=== PATIENT | male | born 1950 | race Caucasian/White ===

== ENCOUNTER 2018-12-28 20:17 | Observation (INO) ==
[2018-12-28] MEDS ORDERED: SODIUM CHLORIDE 0.9% 500 ML IV ONE (20:46)
[2018-12-28 21:06] LABS: Basophils # (auto) 0.03 K/uL (0-0.2); Basophils % (auto) 0.3 %; Eosinophils # (auto) 0.14 K/uL (0-0.5); Eosinophils % (auto) 1.3 %; Hematocrit (blood only) 51.6 % (42-52); Immature Granulocytes # (auto) 0.02 K/uL (0.00-0.02); Immature Granulocytes % (auto) 0.2 %; Lymphocytes % (auto) 15.4 %; Mean Corpuscular Hgb Conc 34.9 g/dL (32-36); Mean Corpuscular Volume 85.9 fL (80-100); Mean Platelet Volume 10.8 fL (7.4-10.4); Monocytes # (auto) 0.72 K/uL (0.11-0.59); Monocytes % (auto) 6.5 %; Neutrophils # (auto) 8.43 K/uL (1.4-6.5); Neutrophils % (auto) 76.3 %; Platelet Count 305 K/uL (130-400); RDW Coefficient of Variation 13.1 % (11.5-14.5); RDW Standard Deviation 41.2 fL (36.4-46.3); Red Blood Count 6.01 M/uL (4.7-6.1); White Blood Count 11.04 K/uL (4.8-10.8)
--- NOTE | 2018-12-28 21:11 | CT Scan Report ---
CT head/brain wo con CLINICAL HISTORY: Head trauma. Thickened be. COMPARISON STUDY: No previous studies for comparison. TECHNIQUE: Axial CT of the brain is performed from the vertex to the skull base. IV contrast was not administered for this examination. A dose lowering technique was utilized adhering to the principles of ALARA. CT DOSE: 1026.72 mGy.cm FINDINGS: No intra or extra-axial mass lesions are visualized. There is no CT evidence of acute cortical infarc tion. There is no evidence of midline shift. There is no acute hemorrhage. No calvarial fractures ar e visualized. There are minimal white matter hypodensities likely on a small vessel basis. There are mild involutio nal changes. There is no evidence of pathologic ventricular dilatation. There is no evidence of acute sinusitis IMPRESSION: No acute intracranial findings Electronically signed by: Cameron Russell M.D. 12/28/2018 9:10 PM
--- NOTE | 2018-12-28 21:17 | CT Scan Report ---
CT OF THE CERVICAL SPINE CLINICAL HISTORY: Neck pain status post trauma. Syncope. COMPARISON STUDY: No previous studies for comparison. CT DOSE: TECHNIQUE: CT scan of the cervical spine was performed from the skull base to the thoracic inlet. Heaven ges are reviewed in the axial, sagittal, and coronal planes. IV contrast was not administered for thi s examination. A dose lowering technique was utilized adhering to the principles of ALARA. FINDINGS: The visualized portions of the lung apices reveal no evidence of pneumothorax. The prevertebral soft tissues are normal. No fractures or subluxations are visualized. There are multilevel degenerative changes IMPRESSION: No evidence of acute fracture or traumatic subluxation. Electronically signed by: Cameron Russell M.D. 12/28/2018 9:16 PM
--- NOTE | 2018-12-28 21:21 | CT Scan Report ---
CT facial bones wo con CT DOSE: CLINICAL HISTORY: Facial pain status post trauma. SYNCOPE COMPARISON STUDY: No previous studies for comparison. TECHNIQUE: Helical images were acquired in the transverse plane. The study was reviewed and analyzed on the independent 3-D workstation. A dose lowering technique was utilized adhering to the principle s of ALARA. The pterygoid plates appear intact. The zygomatic arches appear intact. The globes appear intact. There is no evidence of orbital emphysema. The orbital mejia and floor appear intact. The mandibular condyles appear intact. There are acute nasal bone fractures IMPRESSION: 1. Acute nasal bone fractures 2. No additional fractures identified Electronically signed by: Cameron Russell M.D. 12/28/2018 9:19 PM
[2018-12-28 21:23] LABS: Alanine Aminotransferase 29 U/L (12-78); Albumin Level 4.1 gm/dl (3.4-5.0); Aspartate Aminotransferase 24 U/L (15-37); Blood Urea Nitrogen 19 mg/dl (7-18); Calcium 9.4 mg/dl (8.5-10.1); Carbon Dioxide 25 mmol/L (21-32); Chloride 105 mmol/L (98-107); Creatinine Clr Calc Pharmacy 51.6 ml/min; Est GFR (African American) 51.7; Est GFR (Non-African American) 44.6; Glucose 128 mg/dl (70-99); Magnesium 1.9 mg/dl (1.8-2.4); Potassium 3.8 mmol/L (3.5-5.1); Sodium 139 mmol/L (136-145)
--- NOTE | 2018-12-28 21:32 | XRay Report ---
XR chest 1V portable CLINICAL HISTORY: syncope COMPARISON STUDY: No previous studies for comparison. FINDINGS: There are postsurgical changes of a midline sternotomy. The heart is normal in size. There is mild interstitial thickening, a finding of uncertain chronicity. There is no lobar consolidation. There are no pleural effusions.[No pneumothorax is visualized. There is a left subclavian dual-chambe r central venous pacemaker. IMPRESSION: 1. Mild interstitial thickening, a finding of uncertain chronicity.. No evidence of focal pulmonary c onsolidation. No evidence of pneumothorax. Electronically signed by: Cameron Russell M.D. 12/28/2018 9:31 PM
[2018-12-28 21:34] LABS: Alkaline Phosphatase 93 U/L (45-117); Bilirubin,Total 0.9 mg/dl (0.2-1); Globulin 4.1 gm/dl (2.5-4.0); Total Protein 8.2 gm/dl (6.4-8.2); Troponin I < 0.015 ng/ml (0-0.045)
[2018-12-28] MEDS ORDERED: XYLOCAINE 1%/SOD BICARB 20 ML VIAL INFIL ONE (22:53)
--- NOTE | 2018-12-28 23:22 | History & Physical Report ---
Date of Service December 28, 2018 Assessment & Plan (1) Syncope: The patient will be admitted to telemetry for serial cardiac enzymes, serial EKG's, cardiac rhythm monitoring and a 2-D echocardiogram with Dopplers.. CT of head negative for acute event. Order carotid Dopplers. Event most likely related to combination of hypoglycemia and dehydration. We will have patient seen by cardiology and neurology in a.m. Present on Admission?: Yes (2) History of aortic valve replacement: History of bicuspid aortic valve, underwent bovine AVR on 04/2013. Check echocardiogram in a.m. Present on Admission?: Yes (3) History of permanent cardiac pacemaker placement: Manufacture rep is being contacted for interrogation. Present on Admission?: Yes (4) HTN (hypertension): Hypertension/renal insufficiency- Creatinine upon admission was 1.57, with no baseline for reference. For now hold lisinopril. Gentle rehydration with IV fluids. Continue metoprolol tartrate 25 mg p.o. twice daily, and aspirin 81 mg p.o. daily Present on Admission?: Yes (5) Renal insufficiency: See above Present on Admission?: Yes (6) HLD (hyperlipidemia): Continue atorvastatin 20 mg every evening. Present on Admission?: Yes (7) Superficial laceration of face: Sutures placed by ED staff. Will need follow-up with his PCP as directed. Present on Admission?: Yes (8) BPH (benign prostatic hyperplasia): Continue tamsulosin 0.4 mg at bedtime. Not likely a contributor to his syncopal event Present on Admission?: Yes History of Present Illness Chief Complaint: The patient presents to the emergency department after a syncopal episode. Primary Care Provider: NO PCP The patient is a 68-year-old male with a past medical history including hyp ertension, hyperlipidemia, BPH, bovine aortic valve replacement and pacer placement. He reports that he ate a bagel this morning, and then traveled from [facility] to [employer] for the football game today. 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 As he continued to walking up the steps, he started to feel funny, he and his stopped to get some food, and while they were leaning against while eating he next found himself being picked up off the floor by the people around him. He has not had any previous occurrences of syncope. He denies any loss of bowel or bladder function, he did not have any focal weakness or abnormal sensations in arms or legs. He did sustain nasal bone fractures and facial lacerations that required suturing in the ED. Allergies Allergy/AdvReac Type Severity Reaction Status Date / Time Penicillins Allergy Unknown HAPPENED Verified 12/28/18 20:56 A CHILD Home Medications Home Medications Medication Instructions Recorded Confirmed Type aspirin [Aspir-81] 81 mg PO QAM 12/28/18 12/28/18 History atorvastatin 0 mg PO PM 12/28/18 12/28/18 History cholecalciferol (vitamin D3) 400 unit PO QAM 12/28/18 12/28/18 History [Vitamin D3] lisinopril 0 mg PO QPM 12/28/18 12/28/18 History metoprolol tartrate 0 mg PO BID 12/28/18 12/28/18 History omega 6-pgm-tib-fish oil [Fish Oil] 1 cap PO QAM 12/28/18 12/28/18 History tamsulosin 0.4 mg PO QPM 12/28/18 12/28/18 History Past Med/Surg History Family History Other No significant family history Social History Preferred Language: Turkmen Communication Ability: Effective Joggle Press Operator Required: No Beliefs That Will Affect Care: None Current Living Situation: Spouse Other Information That Helps Us Care for You: No Feels Safe at Home: Yes Safety Concerns: Feels Safe At This Time Smoking Status: Never smoker Hx Alcohol Use: Yes Hx Substance Use: No Review of Systems Review of Systems: The patient denies chest pain, palpitations, shortness of breath, dyspnea on exertion, cough, lower extremity swelling, sore throat, fevers, chills, sweats, nausea, vomiting, diarrhea , constipation, abdominal pain, pelvic pain, blood in urine or stool, dysuria, urinary frequency or urgency, focal weakness, numbness or tingling in arms or legs, generalized arthralgias or myalgias, back or neck pain, or night sweats. The review of systems is otherwise negative other than for that already noted above, and at least 10 systems have been reviewed. Physical Exam Physical Exam: The patient is awake, alert and oriented 3, well developed and well nourished, lying in bed and in no acute distress. HEENT--PERRL, EOMI, mucous membranes and oropharynx normal. Sutures over facial areas as noted in ED PA notes. Neck--supple. No JVD. No bruits. Thyroid normal, trachea midline, no adenopathy. Heart--normal S1 and S2. No murmurs, rubs or gallops. Lungs--clear bilaterally, no respiratory distress, no accessory muscle use. Abdomen--normal bowel sounds and soft. Nontender. Nondistended. Obese. Extremities--no cyanosis or clubbing. No edema. There are good distal pulses b/l. Dermatologic--facial laceration abrasions as noted. Neurologic--cranial nerves II through XII grossly intact. Rheumatologic--normal range of motion. Psychiatric--normal affect. Results & Data Vital Signs (Past 12 Hours) Vital Signs Temp Pulse Resp BP Pulse Ox 12/28/18 22:10 69 18 158/97 H 96 12/28/18 21:14 98 12/28/18 20:27 98.1 F 83 18 130/77 96 12/28/18 20:23 99 H 18 126/68 97 Laboratory Results Laboratory Results WBC 11.04 K/uL (4.8-10.8) H 12/28/18 20:15 RBC 6.01 M/uL (4.7-6.1) 12/28/18 20:15 Hgb 18.0 g/dL (14.0-18.0) 12/28/18 20:15 Hct 51.6 % (42-52) 12/28/18 20:15 MCV 85.9 fL (80-100) 12/28/18 20:15 MCH 30.0 pg (25-34) 12/28/18 20:15 MCHC 34.9 g/dL (32-36) 12/28/18 20:15 RDW Std Deviation 41.2 fL (36.4-46.3) 12/28/18 20:15 RDW Coeff of Lisa 13.1 % (11.5-14.5) 12/28/18 20:15 Plt Count 305 K/uL (130-400) 12/28/18 20:15 MPV 10.8 fL (7.4-10.4) H 12/28/18 20:15 Immature Gran % (Auto) 0.2 % 12/28/18 20:15 Neut % (Auto) 76.3 % 12/28/18 20:15 Lymph % (Auto) 15.4 % 12/28/18 20:15 [place] % (Auto) 6.5 % 12/28/18 20:15 Eos % (Auto) 1.3 % 12/28/18 20:15 Baso % (Auto) 0.3 % 12/28/18 20:15 Immature Gran # (Auto) 0.02 K/uL (0.00-0.02) 12/28/18 20:15 Neut # (Auto) 8.43 K/uL (1.4-6.5) H 12/28/18 20:15 Lymph # (Auto) 1.70 K/uL (1.2-3.4) 12/28/18 20:15 [place] # (Auto) 0.72 K/uL (0.11-0.59) H 12/28/18 20:15 Eos # (Auto) 0.14 K/uL (0-0.5) 12/28/18 20:15 Baso # (Auto) 0.03 K/uL (0-0.2) 12/28/18 20:15 Sodium 139 mmol/L (136-145) 12/28/18 20:15 Potassium 3.8 mmol/L (3.5-5.1) 12/28/18 20:15 Chloride 105 mmol/L (98-107) 12/28/18 20:15 Carbon Dioxide 25 mmol/L (21-32) 12/28/18 20:15 Anion Gap 9.0 (3-11) 12/28/18 20:15 BUN 19 mg/dl (7-18) H 12/28/18 20:15 Creatinine 1.57 mg/dl (0.6-1.4) H 12/28/18 20:15 Est Cr Clr Drug Dosing 51.6 ml/min 12/28/18 20:15 Est GFR ( Amer) 51.7 12/28/18 20:15 Est GFR (Non-Af Amer) 44.6 12/28/18 20:15 BUN/Creatinine Ratio 12.0 (10-20) 12/28/18 20:15 Glucose 128 mg/dl (70-99) H 12/28/18 20:15 Calcium 9.4 mg/dl (8.5-10.1) 12/28/18 20:15 Magnesium 1.9 mg/dl (1.8-2.4) 12/28/18 20:15 Total Bilirubin 0.9 mg/dl (0.2-1) 12/28/18 20:15 AST 24 U/L (15-37) 12/28/18 20:15 ALT 29 U/L (12-78) 12/28/18 20:15 Alkaline Phosphatase 93 U/L (45-117) 12/28/18 20:15 Troponin I 0.017 ng/ml (0-0.045) 12/29/18 01:04 Total Protein 8.2 gm/dl (6.4-8.2) 12/28/18 20:15 Albumin 4.1 gm/dl (3.4-5.0) 12/28/18 20:15 Globulin 4.1 gm/dl (2.5-4.0) H 12/28/18 20:15 Albumin/Globulin Ratio 1.0 (0.9-2) 12/28/18 20:15 TSH 3.140 uIu/ml (0.300-4.500) 12/28/18 20:15 Urine Color Yellow 12/29/18 00:20 Urine Appearance Clear (Clear) 12/29/18 00:20 Urine pH 5.0 (4.5-7.5) 12/29/18 00:20 Ur Specific [place] 1.023 (1.000-1.030) 12/29/18 00:20 Urine Protein Negative (Negative) 12/29/18 00:20 Urine Glucose (UA) Negative (Negative) 12/29/18 00:20 Urine Ketones Trace (Negative) H 12/29/18 00:20 Urine Blood Negative (Negative) 12/29/18 00:20 Urine Nitrite Negative (Negative) 12/29/18 00:20 Urine Bilirubin Negative (Negative) 12/29/18 00:20 Urine Urobilinogen Negative (Negative) 12/29/18 00:20 Ur Leukocyte Esterase Negative (Negative) 12/29/18 00:20 Diagnostic Findings [facility], [place] [phone] CT Scan Report Patient: COLTON WORTHYAdmit Date: 12/28/18 MR#: [id number]: Acct ID:[id number]: Date: [address] [place] [address] Zip: Age: 68Location: ED Sex: M Room/Bed: Att Phy:Diagnosis: SYNCOPE Arlen Phy: PCP,NOService Date: 12/28/18 Fam Phy:Interpreting Phy: Cameron Russell MD Admit Phy: Ordering Phy: Manoj Siddiqi DO cc: ~ CT facial bones wo con CT DOSE: CLINICAL HISTORY: Facial pain status post trauma. SYNCOPE COMPARISON STUDY: No previous studies for comparison. TECHNIQUE: Helical images were acquired in the transverse plane. The study was reviewed and analyzed on the independent 3-D workstation. A dose lowering technique was utilized adhering to the principles of ALARA. The pterygoid plates appear intact. The zygomatic arches appear intact. The globes appear intact. There is no evidence of orbital emphysema. The orbital mejia and floor appear intact. The mandibular condyles appear intact. There are acute nasal bone fractures IMPRESSION: 1. Acute nasal bone fractures 2. No additional fractures identified Electronically signed by: Cameron Russell M.D. 12/28/2018 9:19 PM Dictated: 12/28/182115 Transcribed: 12/28/182115 [place], [place] [phone] CT Scan Report Patient: COLTON WORTHYAdmit Date: 12/28/18 MR#: [id number]: Acct ID:[id number]: Date: [address] [place] [address] Zip: Age: 68Location: ED Sex: M Room/Bed: Att Phy:Diagnosis: SYNCOPE Arlen Phy: PCP,NOService Date: 12/28/18 Fam Phy:Interpreting Phy: Cameron Russell MD Admit Phy: Ordering Phy: Mnaoj Siddiqi DO cc: ~ CT OF THE CERVICAL SPINE CLINICAL HISTORY: Neck pain status post trauma. Syncope. COMPARISON STUDY: No previous studies for comparison. CT DOSE: TECHNIQUE: CT scan of the cervical spine was performed from the skull base to the thoracic inlet. Images are reviewed in the axial, sagittal, and coronal planes. IV contrast was not administered for this examination. A dose lowering technique was utilized adhering to the principles of ALARA. FINDINGS: The visualized portions of the lung apices reveal no evidence of pneumothorax. The prevertebral soft tissues are normal. No fractures or subluxations are visualized. There are multilevel degenerative changes IMPRESSION: No evidence of acute fracture or traumatic subluxation. Electronically signed by: Cameron Russell M.D. 12/28/2018 9:16 PM Dictated: 12/28/182113 Transcribed: 12/28/182113 [facility], [place] [phone] CT Scan Report Patient: COLTON WORTHYAdmit Date: 12/28/18 MR#: [id number]: Acct ID:[id number]: Date: 1950[facility] Zip: Age: 68Location: ED Sex: M Room/Bed: Att Phy:Diagnosis: SYNCOPE Arlen Phy: PCP,NOService Date: 12/28/18 Fam Phy:Interpreting Phy: Cameron Russell MD Admit Phy: Ordering Phy: Manoj Siddiqi, cc: ~ CT head/brain wo con CLINICAL HISTORY: Head trauma. Thickened be. COMPARISON STUDY: No previous studies for comparison. TECHNIQUE: Axial CT of the brain is performed from the vertex to the skull base. IV contrast was not administered for this examination. A dose lowering technique was utilized adhering to the principles of ALARA. CT DOSE: 1026.72 mGy.cm FINDINGS: No intra or extra-axial mass lesions are visualized. There is no CT evidence of acute cortical infarction. There is no evidence of midline shift. There is no acute hemorrhage. No calvarial fractures are visualized. There are minimal white matter hypodensities likely on a small vessel basis. There are mild involutional changes. There is no evidence of pathologic ventricular dilatation. There is no evidence of acute sinusitis IMPRESSION: No acute intracranial findings Electronically signed by: Cameron Russell M.D. 12/28/2018 9:10 PM Dictated: 12/28/182107 Transcribed: 12/28/182107 [facility], [place] [phone] XRay Report Patient: COLTON WORTHYAdmit Date: 12/28/18 MR#: [id number]: Acct ID:[id number]: [facility] Zip: Age: 68Location: ED Sex: M Room/Bed: Att Phy:Diagnosis: SYNCOPE Arlen Phy: PCP,NOService Date: 12/28/18 [facility] Phy:Interpreting Phy: Cameron Russell MD Admit Phy: Ordering Phy: Manoj Siddiqi, cc: ~ XR chest 1V portable CLINICAL HISTORY: syncope COMPARISON STUDY: No previous studies for comparison. FINDINGS: There are postsurgical changes of a midline sternotomy. The heart is normal in size. There is mild interstitial thickening, a finding of uncertain chronicity. There is no lobar consolidation. There are no pleural effusions.[No pneumothorax is visualized. There is a left subclavian dual-chamber central venous pacemaker. IMPRESSION: 1. Mild interstitial thickening, a finding of uncertain chronicity.. No evidence of focal pulmonary consolidation. No evidence of pneumothorax. Electronically signed by: Cameron Russell M.D. 12/28/2018 9:31 PM Dictated: 12/28/182128 Transcribed: 12/28/182128 Code Status & VTE Plan Code Status Full code VTE Prophylaxis Plan VTE Prophylaxis will be ordered: Yes PG Care Time/CCT Total # of Minutes Spent Total Time Spent with Patient: Total time spent is greater than 50% in coordination of care (as documented) at patient's floor/unit and/or counseling patient: (1) Syncope Syncope type: unspecified Qualified Code(s): R55 - Syncope and collapse
--- NOTE | 2018-12-28 23:44 | Emergency Department Note ---
ED Provider Note Patient was seen and evaluated at the request of my attending physician, Dr. Siddiqi, for both upper and lower lip lacerations. Evidently the [place] [employer] [place], and had a syncopal episode. He was initially evaluated by medical staff at the [facility] and the outer laceration of his upper lip was previously repaired. Please see Dr. Siddiqi's dictation for full history of present illness and emergency department course. On examination the patient still has lacerations inside the lip, with the upper lip laceration measuring approximately 1.0 cm, and the lower lip laceration measuring approximately 8 mm. Both of these do gape and will do much better with simple repair. I discussed options of care with the patient, and he does consent to have these lacerations repaired. Laceration repair. Patient elects to have their laceration repaired. Verbal consent was obtained to perform the procedure. There is an abundance of materials available for the procedure. Patient is not allergic to latex. Using sterile technique the wound was cleaned with Betadine. The area was sterilely draped. 3 ml of 1% buffered lidocaine was used to anesthetize the lips. Once the patient was anesthetized, the wounds were copiously irrigated under pressure with sterile saline. The wound was explored and there were no deep structures injured such as tendons, bone, or significant blood vessels. The upper lip laceration was repaired using 2 6-0 simple interrupted vicryl sutures with the wound edges being well approximated. The lower lip laceration was repaired utilizing 1 6-0 simple interrupted Vicryl suture with the wound edge being well approximated. Hemostasis was achieved. Patient tolerated the procedure well without complications. Blood loss was negligible. Impression & Plan Syncope, MARCIE (acute kidney injury), Laceration Past Med/Surg History Family History Other No significant family history Social History Preferred Language: Chinese Communication Ability: Effective Information Scientist Required: No Beliefs That Will Affect Care: None Current Living Situation: Spouse Other Information That Helps Us Care for You: No Feels Safe at Home: Yes Safety Concerns: Feels Safe At This Time Smoking Status: Never smoker Hx Alcohol Use: Yes Hx Substance Use: No Results & Data Vital Signs Vital Signs - 24 hr 12/28/18 20:23 12/28/18 20:27 12/28/18 20:32 Temperature 36.7 C Temperature Source Oral Sepsis Recent Fever Within 48 Hours No Sepsis New/Unexplained Change in Mental Status No Sepsis Action Taken by Nursing No Action Required Pulse Rate - Lying 83 Pulse Rate - Sitting 88 Pulse Rate - Standing 104 H Pulse Rate 99 H 83 Pulse Rate from SpO2 Sensor 100 H Respiratory Rate 18 18 Blood Pressure - Lying 130/77 Blood Pressure - Sitting 141/88 H Blood Pressure- Standing 126/68 Blood Pressure 126/68 130/77 Blood Pressure Mean 87 94 Blood Pressure Position Lying Pulse Oximetry 97 96 Oxygen Delivery Method 12/28/18 21:14 12/28/18 22:10 12/28/18 23:01 Temperature Temperature Source Sepsis Recent Fever Within 48 Hours Sepsis New/Unexplained Change in Mental Status Sepsis Action Taken by Nursing Pulse Rate - Lying Pulse Rate - Sitting Pulse Rate - Standing Pulse Rate 69 69 Pulse Rate from SpO2 Sensor Respiratory Rate 18 18 Blood Pressure - Lying Blood Pressure - Sitting Blood Pressure- Standing Blood Pressure 158/97 H 163/92 H Blood Pressure Mean 117 115 Blood Pressure Position Pulse Oximetry 98 96 94 Oxygen Delivery Method Room Air Laboratory Data Result diagrams: 12/28/18 20:15 12/28/18 20:15 Lab Results 12/28/18 12/28/18 Range/Units 20:15 20:15 WBC 11.04 H (4.8-10.8) K/uL RBC 6.01 (4.7-6.1) M/uL Hgb 18.0 (14.0-18.0) g/dL Hct 51.6 (42-52) % MCV 85.9 (80-100) fL MCH 30.0 (25-34) pg MCHC 34.9 (32-36) g/dL RDW Std Deviation 41.2 (36.4-46.3) fL RDW Coeff of Lisa 13.1 (11.5-14.5) % Plt Count 305 (130-400) K/uL MPV 10.8 H (7.4-10.4) fL Immature Gran % (Auto) 0.2 % Neut % (Auto) 76.3 % Lymph % (Auto) 15.4 % [place] % (Auto) 6.5 % Eos % (Auto) 1.3 % Baso % (Auto) 0.3 % Immature Gran # (Auto) 0.02 (0.00-0.02) K/uL Neut # (Auto) 8.43 H (1.4-6.5) K/uL Lymph # (Auto) 1.70 (1.2-3.4) K/uL [place] # (Auto) 0.72 H (0.11-0.59) K/uL Eos # (Auto) 0.14 (0-0.5) K/uL Baso # (Auto) 0.03 (0-0.2) K/uL Sodium 139 (136-145) mmol/L Potassium 3.8 (3.5-5.1) mmol/L Chloride 105 (98-107) mmol/L Carbon Dioxide 25 (21-32) mmol/L Anion Gap 9.0 (3-11) BUN 19 H (7-18) mg/dl Creatinine 1.57 H (0.6-1.4) mg/dl Est Cr Clr Drug Dosing 51.6 ml/min Est GFR ( Amer) 51.7 Est GFR (Non-Af Amer) 44.6 BUN/Creatinine Ratio 12.0 (10-20) Glucose 128 H (70-99) mg/dl Calcium 9.4 (8.5-10.1) mg/dl Magnesium 1.9 (1.8-2.4) mg/dl Total Bilirubin 0.9 (0.2-1) mg/dl AST 24 (15-37) U/L ALT 29 (12-78) U/L Alkaline Phosphatase 93 (45-117) U/L Troponin I < 0.015 (0-0.045) ng/ml Total Protein 8.2 (6.4-8.2) gm/dl Albumin 4.1 (3.4-5.0) gm/dl Globulin 4.1 H (2.5-4.0) gm/dl Albumin/Globulin Ratio 1.0 (0.9-2) TSH 3.140 (0.300-4.500) uIu/ml Administered Medications Metoprolol Tartrate (Lopressor) 25 mg PO BID MACI Stop: 01/28/19 00:11 Last Admin: 12/29/18 01:02 Dose: 25 mg Documented by: [id number] Discontinued Medications Sodium Chloride (Nss) 500 mls @ 999 mls/hr IV .Q31M ONE Stop: 12/28/18 21:16 Last Infusion: 12/28/18 22:20 Dose: 0 mls/hr Documented by: [id number] Admin: 12/28/18 21:09 Dose: 999 mls/hr Documented by: [id number] Lidocaine HCl (Buffered Lidocaine 1%) 20 ml INFIL NOW ONE Stop: 12/28/18 22:54 Last Admin: 12/28/18 23:03 Dose: 20 ml Documented by: [id number] Discharge Plan Visit Data *Final* Discharge Date/Time: 12/28/18 23:41 Chief Complaint: Syncope Stated Complaint: SYNCOPE ED Provider: Manoj Siddiqi Discharge Problem: Syncope, MARCIE (acute kidney injury), Laceration Patient Disposition: Admitted As Inpatient Discharge Instructions Interventions: ED Discharge Assessment Last Done: 12/28/18 23:41 Discharge Problem: Syncope Qualifiers: Syncope type: unspecified Qualified Code(s): R55 - Syncope and collapse
[2018-12-29] MEDS ORDERED: ACETAMINOPHEN 1000 MG/100 ML IV IV PRN (00:12)
[2018-12-29] MEDS ORDERED: ALUMINUM/MAGNESIUM SUSP 30 ML UDC PO PRN (00:12)
[2018-12-29] MEDS ORDERED: ACETAMINOPHEN 325 MG TAB PO PRN (00:12)
[2018-12-29] MEDS ORDERED: ONDANSETRON INJ 2 MG/ML 2 ML VIAL IV PRN (00:12)
[2018-12-29] MEDS ORDERED: MAGNESIUM HYDROXIDE SUSP 30 ML UDC PO PRN (00:12)
[2018-12-29] MEDS: METOPROLOL TARTRATE 25 MG TAB PO SCH ×2 (01:02→08:10)
[2018-12-29 01:10] LABS: Appearance Urine Clear (Clear); Bilirubin Urine Negative (Negative); Blood Urine Negative (Negative); Color Urine Yellow; Glucose Urine UA Negative (Negative); Ketones Urine Trace (Negative); Leukocyte Esterase Urine Negative (Negative); Nitrite Urine Negative (Negative); Protein Urine Negative (Negative); Specific Gravity Urine 1.023 (1.000-1.030); Urobilinogen Urine Negative (Negative)
--- NOTE | 2018-12-29 01:48 | Emergency Department Note ---
Entered by Holden Spears acting as a scribe for Manoj Siddiqi DO History of Present Illness General Chief complaint: Syncope Stated complaint: SYNCOPE Source: patient History of Present Illness Onset (ago): hour(s) (prior to arrival) Location: head (syncope) Pain Consistency: + other (episode) Relieved By: + none Associated symptoms: + denies other symptoms (diarrhea) and + other (light- headedness); no chest pain and no nausea/vomiting The patient is a 68 year-old white M w/ PMHx of a bovine aortic valve replacement, HTN, and HLD who presents to the ED w/ CC of an episode of syncope beginning prior to arrival. The patient states that he did not eat anything all day. He adds that he was walking all day. He notes that he decided to go to the football game with his . He adds that at the football game he decided to buy chicken fingers and eat it at the concourse of the stadium. He states that on the concourse, he was experiencing light-headedness. The patients notes that the patient said he was feeling tired. She adds that this is when the patient lost consciousness and fell forward onto his face. She notes that when the patient woke up, he was not shaking and was oriented. He denies that he is currently experiencing chest pain, nausea, vomiting, and diarrhea. He notes that he currently is taking his medications of metoprolol, Lipitor and statins. He states that he had a bovine aortic valve replacement before and has a pacemaker in place. Home Medications Home Medications Medication Instructions Recorded Confirmed Type aspirin [Aspir-81] 81 mg PO QAM 12/28/18 12/28/18 History atorvastatin 0 mg PO PM 12/28/18 12/28/18 History cholecalciferol (vitamin D3) 400 unit PO QAM 12/28/18 12/28/18 History [Vitamin D3] lisinopril 0 mg PO QPM 12/28/18 12/28/18 History metoprolol tartrate 0 mg PO BID 12/28/18 12/28/18 History omega 2-mpz-acf-fish oil [Fish Oil] 1 cap PO QAM 12/28/18 12/28/18 History tamsulosin 0.4 mg PO QPM 12/28/18 12/28/18 History Allergies Allergy/AdvReac Type Severity Reaction Status Date / Time Penicillins Allergy Unknown HAPPENED Verified 12/28/18 20:56 A CHILD Past Med/Surg History Family History Other No significant family history Social History Preferred Language: Maltese Communication Ability: Effective 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 and A total of 10 systems reviewed and were otherwise negative Physical Exam Vital Signs Vital Signs - 24 hr 12/28/18 20:23 12/28/18 20:27 12/28/18 20:32 Temperature 36.7 C Temperature Source Oral Sepsis Recent Fever Within 48 Hours No Sepsis New/Unexplained Change in Mental Status No Sepsis Action Taken by Nursing No Action Required Pulse Rate - Lying 83 Pulse Rate - Sitting 88 Pulse Rate - Standing 104 H Pulse Rate 99 H 83 Pulse Rate from SpO2 Sensor 100 H Respiratory Rate 18 18 Blood Pressure - Lying 130/77 Blood Pressure - Sitting 141/88 H Blood Pressure- Standing 126/68 Blood Pressure 126/68 130/77 Blood Pressure Mean 87 94 Blood Pressure Position Lying Pulse Oximetry 97 96 Oxygen Delivery Method 12/28/18 21:14 12/28/18 22:10 12/28/18 23:01 Temperature Temperature Source Sepsis Recent Fever Within 48 Hours Sepsis New/Unexplained Change in Mental Status Sepsis Action Taken by Nursing Pulse Rate - Lying Pulse Rate - Sitting Pulse Rate - Standing Pulse Rate 69 69 Pulse Rate from SpO2 Sensor Respiratory Rate 18 18 Blood Pressure - Lying Blood Pressure - Sitting Blood Pressure- Standing Blood Pressure 158/97 H 163/92 H Blood Pressure Mean 117 115 Blood Pressure Position Pulse Oximetry 98 96 94 Oxygen Delivery Method Room Air GENERAL: Sitting up in bed, dried blood on upper lip, talking in full sentences. HEAD: normal cephalic, atraumatic FACE: swelling of nasal bridge, slight angulation to the left, 2 sutures just above mid upper lip, dried blood in bilaterally nares. EYE EXAM: normal conjunctiva, PERRL and EOM's grossly intact OROPHARYNX: Laceration on the interior of the upper lip. Please see my PAs note for dimensions and laceration repair. EARS: TMs clear b/l NECK: supple, no nuchal rigidity, no adenopathy, non-tender CHEST: stable to compression anteriorly and posteriorly LUNGS: clear to auscultation. Normal chest wall mechanics HEART: no murmurs, S1 normal and S2 normal ABDOMEN: abdomen soft, non-tender, normo-active bowel sounds, no masses, no rebound or guarding. PELVIS: stable to compression anteriorly and posteriorly BACK: Back is symmetrical on inspection and there is no deformity, no midline tenderness, no CVA tenderness. UPPER EXTREMITIES: full active and passive range of motion of all joints without tenderness to palpation LOWER EXTREMITIES: full active and passive range of motion of all joints without tenderness to palpation NEURO EXAM: Normal sensorium, cranial nerves II-XII grossly intact, normal speech, no gross weakness of arms, no gross weakness of legs. GCS: 15. Course ED COURSE: Vital signs were reviewed and showed hypertension. The patients medical record was reviewed The above diagnostic studies were performed and reviewed. ED treatments and interventions as stated above. 2035: The patient was evaluated in room C4. A complete history and physical examination was performed. 2121: I reviewed the patient's case with EP fellow at [facility]. He states that he was unable to access interrogation of the patients device. 2208: Upon reevaluation, the patient is doing no better. I discussed my findings with the patient and he understands and agrees with the treatment plan. 2239: I reviewed the patient's case with Dr. Arnold Astorga, [facility] Hospitalist. He will evaluate the patient for further management. Based on the patients age, coexisting illnesses, exam and lab findings the de cision to treat as an inpatient was made. The patient remained stable while under my care. The patient will be evaluated for further management. Consultations Consultation #1: I reviewed the patient's case with EP fellow at [facility]. He states that he was unable to access interrogation of the patients device. Time: 21:22 Consultation #2: I reviewed the patient's case with Dr. Arnold Astorga, [facility] Hospitalist. He will evaluate the patient for further management. Time: 22:40 Administered Medications Metoprolol Tartrate (Lopressor) 25 mg PO BID MACI Stop: 01/28/19 00:11 Last Admin: 12/29/18 01:02 Dose: 25 mg Documented by: [id number] Discontinued Medications Sodium Chloride (Nss) 500 mls @ 999 mls/hr IV .Q31M ONE Stop: 12/28/18 21:16 Last Infusion: 12/28/18 22:20 Dose: 0 mls/hr Documented by: [id number] Admin: 12/28/18 21:09 Dose: 999 mls/hr Documented by: [id number] Lidocaine HCl (Buffered Lidocaine 1%) 20 ml INFIL NOW ONE Stop: 12/28/18 22:54 Last Admin: 12/28/18 23:03 Dose: 20 ml Documented by: [id number] Medical Decision Making Differential Diagnosis Differential includes acute cardiac dysrhythmia, microinfarction, CVA, TIA, dehydration, anemia, electrolyte disturbance, seizure, trauma, intracranial bleeding, acute vascular catastrophe, thoracic aortic dissection, PE, abdominal aortic aneurysm rupture, ectopic rupture. Medical Records Attestation: I reviewed the patient's medical records. Home Medications Current Medication List: was personally reviewed by me Laboratory Data Attestation: I reviewed the patient's lab results. Result diagrams: 12/28/18 20:15 12/28/18 20:15 Lab Results 12/28/18 12/28/18 Range/Units 20:15 20:15 WBC 11.04 H (4.8-10.8) K/uL RBC 6.01 (4.7-6.1) M/uL Hgb 18.0 (14.0-18.0) g/dL Hct 51.6 (42-52) % MCV 85.9 (80-100) fL MCH 30.0 (25-34) pg MCHC 34.9 (32-36) g/dL RDW Std Deviation 41.2 (36.4-46.3) fL RDW Coeff of Lisa 13.1 (11.5-14.5) % Plt Count 305 (130-400) K/uL MPV 10.8 H (7.4-10.4) fL Immature Gran % (Auto) 0.2 % Neut % (Auto) 76.3 % Lymph % (Auto) 15.4 % Whiteside % (Auto) 6.5 % Eos % (Auto) 1.3 % Baso % (Auto) 0.3 % Immature Gran # (Auto) 0.02 (0.00-0.02) K/uL Neut # (Auto) 8.43 H (1.4-6.5) K/uL Lymph # (Auto) 1.70 (1.2-3.4) K/uL Whiteside # (Auto) 0.72 H (0.11-0.59) K/uL Eos # (Auto) 0.14 (0-0.5) K/uL Baso # (Auto) 0.03 (0-0.2) K/uL Sodium 139 (136-145) mmol/L Potassium 3.8 (3.5-5.1) mmol/L Chloride 105 (98-107) mmol/L Carbon Dioxide 25 (21-32) mmol/L Anion Gap 9.0 (3-11) BUN 19 H (7-18) mg/dl Creatinine 1.57 H (0.6-1.4) mg/dl Est Cr Clr Drug Dosing 51.6 ml/min Est GFR ( Amer) 51.7 Est GFR (Non-Af Amer) 44.6 BUN/Creatinine Ratio 12.0 (10-20) Glucose 128 H (70-99) mg/dl Calcium 9.4 (8.5-10.1) mg/dl Magnesium 1.9 (1.8-2.4) mg/dl Total Bilirubin 0.9 (0.2-1) mg/dl AST 24 (15-37) U/L ALT 29 (12-78) U/L Alkaline Phosphatase 93 (45-117) U/L Troponin I < 0.015 (0-0.045) ng/ml Total Protein 8.2 (6.4-8.2) gm/dl Albumin 4.1 (3.4-5.0) gm/dl Globulin 4.1 H (2.5-4.0) gm/dl Albumin/Globulin Ratio 1.0 (0.9-2) TSH 3.140 (0.300-4.500) uIu/ml Imaging Data Radiologist's Impression: Radiology results as stated below per my review and the radiologist's interpretation: CT OF THE CERVICAL SPINE CLINICAL HISTORY: Neck pain status post trauma. Syncope. COMPARISON STUDY: No previous studies for comparison. CT DOSE: TECHNIQUE: CT scan of the cervical spine was performed from the skull base to the thoracic inlet. Images are reviewed in the axial, sagittal, and coronal planes. IV contrast was not administered for this examination. A dose lowering technique was utilized adhering to the principles of ALARA. FINDINGS: The visualized portions of the lung apices reveal no evidence of pneumothorax. The prevertebral soft tissues are normal. No fractures or subluxations are vis ualized. There are multilevel degenerative changes IMPRESSION: No evidence of acute fracture or traumatic subluxation. Electronically signed by: Cameron Russell M.D. 12/28/2018 9:[address] facial bones wo con CT DOSE: CLINICAL HISTORY: Facial pain status post trauma. SYNCOPE COMPARISON STUDY: No previous studies for comparison. TECHNIQUE: Helical images were acquired in the transverse plane. The study was reviewed and analyzed on the independent 3-D workstation. A dose lowering technique was utilized adhering to the principles of ALARA. The pterygoid plates appear intact. The zygomatic arches appear intact. The globes appear intact. There is no evidence of orbital emphysema. The orbital mejia and floor appear intact. The mandibular condyles appear intact. There are acute nasal bone fractures IMPRESSION: 1. Acute nasal bone fractures 2. No additional fractures identified Electronically signed by: Cameron Russell M.D. 12/28/2018 9:[address] head/brain wo con CLINICAL HISTORY: Head trauma. Thickened be. COMPARISON STUDY: No previous studies for comparison. TECHNIQUE: Axial CT of the brain is performed from the vertex to the skull base. IV contrast was not administered for this examination. A dose lowering technique was utilized adhering to the principles of ALARA. CT DOSE: 1026.72 mGy.cm FINDINGS: No intra or extra-axial mass lesions are visualized. There is no CT evidence of acute cortical infarction. There is no evidence of midline shift. There is no acute hemorrhage. No calvarial fractures are visualized. There are minimal white matter hypodensities likely on a small vessel basis. There are mild involutional changes. There is no evidence of pathologic ventricular dilatation. There is no evidence of acute sinusitis IMPRESSION: No acute intracranial findings Electronically signed by: Cameron Russell M.D. 12/28/2018 9:10 PM XR chest 1V portable CLINICAL HISTORY: syncope COMPARISON STUDY: No previous studies for comparison. FINDINGS: There are postsurgical changes of a midline sternotomy. The heart is normal in size. There is mild interstitial thickening, a finding of uncertain chronicity. There is no lobar consolidation. There are no pleural effusions.[No pneumothorax is visualized. There is a left subclavian dual-chamber central venous pacemaker. IMPRESSION: 1. Mild interstitial thickening, a finding of uncertain chronicity.. No evidence of focal pulmonary consolidation. No evidence of pneumothorax. Electronically signed by: Cameron Russell M.D. 12/28/2018 9:31 PM ECG Data Attestation: I personally reviewed and interpreted this ECG as follows: Indication: syncope Rate (beats per minute): 79 Rhythm: other (atrial paced) Findings: + other (normal axis); no PVC Blood Pressure Blood Pressure Findings: Elevated blood pressure Blood Pressure Disposition: Referred to patients primary care provider MDM Narrative Patient is a 60-year-old male who after walking up through [place] getting some food has syncopal episode and fell forward. He had no prodromal symptoms with the exception of feeling a little lightheaded and notes that he was angry about the Balwinder Odell. IV was established blood work was obtained and showed no significant leukocytosis or anemia. BMP with a creatinine 1.57. LFTs bilirubin was unremarkable. Troponin was negative. TSH unremarkable. UA was negative. Chest x-ray was unremarkable. He has a [employer] pacemaker and was unable to interrogate this. Did call the hospital where was placed and they are unable to do this electronically. Was unable to find the rep for this. EKG was nondiagnostic. With his syncopal episode in combination with unable to interrogate pacemaker and aortic valve recommended observation. CT head face and cervical spine showed nasal bone fracture. Laceration was repaired by my PA. He was discussed with hospitalist for observation. Impression & Plan Syncope, MARCIE (acute kidney injury), Laceration Discharge Plan Visit Data *Final* Discharge Date/Time: 12/28/18 23:41 Chief Complaint: Syncope Stated Complaint: SYNCOPE ED Provider: Manoj Siddiqi Discharge Problem: Syncope, MARCIE (acute kidney injury), Laceration Patient Disposition: Admitted As Inpatient Discharge Instructions Interventions: ED Discharge Assessment Last Done: 12/28/18 23:41 Discharge Problem: Syncope Qualifiers: Syncope type: unspecified Qualified Code(s): R55 - Syncope and collapse The scribe's documentation has been prepared under my direction and personally reviewed by me in its entirety. I confirm that the note above accurately re flects all work, treatment, procedures, and medical decision making performed by me.
--- NOTE | 2018-12-29 08:32 | Cardiology Consultation ---
Date of Consultation December 29, 2018 Assessment & Plan (1) Syncope: His syncope was sudden, he quickly recovered but did sustain a fall. It was preceded by dizziness. This is suggestive of hypotension not hypoglycemia. Pacemaker evaluation shows excellent function with normal pacing thresholds and no tachycardia identified at this time. I suspect it was transient hypotension, perhaps even a vagal event which would not be picked up by the pacemaker. (2) History of aortic valve replacement: He has a bioprosthetic aortic valve in place, implanted 4-1/2 years ago. That is an unlikely cause of syncope since it appears to be working well at this time and his episode was very transient. (3) History of permanent cardiac pacemaker placement: He has a [employer] pacemaker which was implanted in April 2013 shortly after his surgery. (4) CAD (coronary artery disease), autologous vein bypass graft: By his history (he appears to be a good historian) he has one bypass graft which was placed because of the incidental finding of coronary disease prior to his valve surgery. This would be a normal procedure, his cardiac enzymes are negative and ischemia seems very unlikely because of his event. History of Present Illness Attending Physician: Sarah Acosta MD History of Present Illness This is a 68-year-old gentleman who has a history of hypertension, hyperlipidemia and is admitted for syncope. He has a history of bioprosthetic aortic valve replacement and a Biot[employer] dual-chamber pacemaker, both implanted in April 2013. He was in [place] for the football game, he walked up 3 flights of stairs to his seat, began to have intermittent lightheadedness and he stopped to get some food and then found himself on the floor with no recollection of falling. He awoke quickly, was not incontinent and denies symptoms of palpitations preceding the event and had no chest discomfort. He did have one bypass graft placed at surgery, but was told that they would not have gone in and done that procedure if it were not for the valve. He has never had chest discomfort in the past. This is his second episode of syncope, his first occurred 6 months before implantation of the valve and pacemaker and he had no other symptoms at that time either. He did have injury to his face on this occasion and is felt well since. It sounds as though the duration of the event was brief but I am not sure how long, he awoke recalling that the sap consultant were there so it must have been of some duration (not seconds). He has never had this symptom of lightheadedness before and it was on and off before his syncopal event, not sustained. He had no symptoms walking up to 3 flights of stairs, the symptoms occurred after he got to the top of the 3 levels. Allergies Allergy/AdvReac Type Severity Reaction Status Date / Time Penicillins Allergy Unknown HAPPENED Verified 12/28/18 20:56 A CHILD Home Medications Home Medications Medication Instructions Recorded Confirmed Type aspirin [Aspir-81] 81 mg PO QAM 12/28/18 12/28/18 History atorvastatin 0 mg PO PM 12/28/18 12/28/18 History cholecalciferol (vitamin D3) 400 unit PO QAM 12/28/18 12/28/18 History [Vitamin D3] lisinopril 0 mg PO QPM 12/28/18 12/28/18 History metoprolol tartrate 0 mg PO BID 12/28/18 12/28/18 History omega 7-ybx-uvr-fish oil [Fish Oil] 1 cap PO QAM 12/28/18 12/28/18 History tamsulosin 0.4 mg PO QPM 12/28/18 12/28/18 History Patient History Medical History HLD (hyperlipidemia) (Chronic) HTN (hypertension) (Chronic) Surgical History History of aortic valve replacement (Chronic) Family History Other No significant family history Social History Preferred Language: Faroese Communication Ability: Effective 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 HEENT: Unremarkable other than a bandage over his nose as a result of his fall Neck: No jugular venous distention, carotid pulses are normal and equal bilaterally without bruits. Pulmonary: Clear to auscultation bilaterally. Cardiac: Regular rhythm with normal bioprosthetic valve sounds and no significant murmur, no gallop or rub. Abdomen: Soft, nontender with normal bowel sounds. Extremities: No edema. Distal pulses intact. Neurologic: No focal findings. Gait is steady. Skin: The device site is well-healed without erythema, swelling or tenderness. No rash, ecchymoses or petechiae. Results & Data Vital Signs (Past 12 Hours) Vital Signs Temp Pulse Pulse Resp BP BP Pulse Ox 12/29/18 07:26 36.6 C 68 16 138/89 97 12/29/18 03:24 36.4 C L 63 18 125/77 98 12/29/18 02:06 73 12/29/18 00:15 36.6 C 71 20 170/70 H 97 12/28/18 23:01 69 18 163/92 H 94 12/28/18 22:10 69 18 158/97 H 96 12/28/18 21:14 98 Laboratory Results Abnormal lab results 12/28/18 12/28/18 12/29/18 Range/Units 20:15 20:15 00:20 WBC 11.04 H (4.8-10.8) K/uL MPV 10.8 H (7.4-10.4) fL Neut # (Auto) 8.43 H (1.4-6.5) K/uL Ada # (Auto) 0.72 H (0.11-0.59) K/uL BUN 19 H (7-18) mg/dl Creatinine 1.57 H (0.6-1.4) mg/dl Glucose 128 H (70-99) mg/dl Globulin 4.1 H (2.5-4.0) gm/dl Urine Ketones Trace H (Negative) Diagnostic Findings Electrocardiogram on arrival: Predominantly some intrinsic sinus rhythm, atrial pacing with intact AV conduction, a narrow conducted complex, no acute changes. Today's electrocardiogram is similar, there is a lot of artifact on the recording which is due to the operation of the CLS algorithm in his pacemaker. Echocardiogram: Preliminarily no significant abnormality, formal report will be completed later today Pacemaker evaluation: I evaluated his pacemaker today, he has had 3 recorded episodes of atrial tachycardia but the last was December 17, 2018 and lasted 20 seconds, therefore there is no tachycardia to explain his symptoms. I checked the thresholds and they are excellent and the pacemaker appears to be functioning normally. PG Care Time/CCT Total # of Minutes Spent Total Time Spent with Patient: Total time spent is greater than 50% in coordination of care (as documented) at patient's floor/unit and/or counseling patient: (1) Syncope Syncope type: unspecified Qualified Code(s): R55 - Syncope and collapse
[2018-12-29] MEDS ORDERED: ASPIRIN 81 MG ECTAB PO SCH (09:00)
[2018-12-29] MEDS ORDERED: CHOLECALCIFEROL (VITAMIN D) 400 UNITS TABLET PO SCH (09:00)
[2018-12-29] MEDS ORDERED: OMEGA-3 (PURIFIED FISH OIL) 1 GM CAP PO SCH (09:00)
--- NOTE | 2018-12-29 09:49 | Ultrasound Report ---
ULTRASOUND OF THE CAROTID ARTERIES CLINICAL HISTORY: Syncope. COMPARISON STUDY: No priors. TECHNIQUE: Real-time, grayscale, and color Doppler sonography of the carotid arteries is performed. I mages are reviewed in the transverse and longitudinal planes. FINDINGS: Blood pressure in the right arm measures 120/82 and blood pressure in the left arm measures 110/73. The carotid arteries are patent bilaterally and demonstrate antegrade flow. There is mild atheroscler otic plaque seen in the left carotid bulb. Normal doppler arterial waveforms are seen throughout. Fracisco ocity measurements are listed below. Common carotid peak systolic velocity (cm/sec): RIGHT: 98 LEFT: 129 ICA proximal peak systolic velocity (cm/sec): RIGHT: 59 LEFT: 51 ICA mid peak systolic velocity (cm/sec): RIGHT: 48 LEFT: 40 ICA distal peak systolic velocity (cm/sec): RIGHT: 35 LEFT: 50 ICA/CC peak systolic ratio: RIGHT: 0.6 LEFT: 0.4 Antegrade flow was shown in the vertebral arteries. The external carotid arteries are patent. IMPRESSION: 1. There is no sonographic evidence of hemodynamically significant stenosis in the right or left ghotra tid arterial system. 2. Antegrade flow is shown in the vertebral arteries. Electronically signed by: Lopez Zambrano M.D. 12/29/2018 9:47 AM
[2018-12-29 10:46] LABS: BUN Creatinine Ratio 13.1 (10-20); Calcium 9.4 mg/dl (8.5-10.1); Creatinine Clr Calc Pharmacy 59.8 ml/min; Est GFR (African American) 62.1; Est GFR (Non-African American) 53.6; Potassium 3.8 mmol/L (3.5-5.1)
[2018-12-29 10:49] LABS: Troponin I < 0.015 ng/ml (0-0.045)
--- NOTE | 2018-12-29 13:45 | Discharge Summary ---
Date of Service December 29, 2018 Admission HPI Per Admitting Provider The patient is a 68-year-old male with a past medical history including hypertension, hyperlipidemia, BPH, bovine aortic valve replacement and pacer placement. He reports that he ate a bagel this morning, and then traveled from [facility] to [place] for the football game today. 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 As he continued to walking up the steps, he started to feel funny, he and his stopped to get some food, and while they were leaning against while eating he next found himself being picked up off the floor by the people around him. He has not had any previous occurrences of syncope. He denies any loss of bowel or bladder function, he did not have any focal weakness or abnormal sensations in arms or legs. He did sustain nasal bone fractures and facial lacerations that required suturing in the ED. Principal Diagnosis Syncope, Nasal bone fracture, Facial laceration Discharge Exam Constitutional WD/WN, vitals as above Eyes PERRL, conjunctivae normal, anicteric sclerae ENMT Ears: no hearing impairment, no external ear abnormality, no EAC abnormality and no TM abnormality Nose: + external nose abnormality (mild erythema and edema of nose); no turbinate abnormality, no nasal mucous membrane abnormality, no septum abnormality (no septal hematoma visualized ), no nasal discharge, no nasal polyps and no facial tenderness Mouth: + lip abnormality (upper lip with edema,lacs with sutures in place); no oropharynx abnormality, no oral mucosal abnormality and no tongue abnormality Neck trachea midline, no thyromegaly Respiratory normal respiratory effort, lungs clear to auscultation Cardiovascular RRR, no murmur, no edema Gastrointestinal (Abdomen) normal bowel sounds, soft, nontender, no hepatosplenomegaly Musculoskeletal Extremities: extremities normal to inspection; no cyanosis and no clubbing Skin no rashes, warm and dry Neurologic moves all extremities and awake; no focal motor deficits Psychiatric A+Ox3, euthymic affect Discharge Data Allergies Allergy/AdvReac Type Severity Reaction Status Date / Time Penicillins Allergy Unknown HAPPENED Verified 12/28/18 20:56 A CHILD Consultations Cardiology Procedures Performed Echocardiogram Ordered Studies 12/28/18 20:46 CT cervical spine wo con Stat CT facial bones wo con Stat 12/28/18 20:47 CT head/brain wo con Stat 12/28/18 23:15 US carotid doppler BI Routine Hospital Course (1) Syncope: Had an episode of syncope preceded bu poor po/liquid intake, over [id number] steps on his pedometer on a hot day,and lightheadedness. Pacer interrogated and no arrhythmia to explain his syncope. 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 He was completely asymptomatic by the next day and was not orthostatic on vitals. Serial troponins were neg x 3, ECHO with preserved EF and valve functioning well, had no events on telemetry here. CT of head negative for acute event. Carotid Dopplers ordered upon admission were negative for stenosis Appreciate Cardiology consultation Stable for discharge to home (2) History of aortic valve replacement: History of bicuspid aortic valve, underwent bovine AVR on 04/2013. Valve functioning well on ECHO here -continue f/u with Cardio (3) History of permanent cardiac pacemaker placement: interrogation here without arrhythmia (4) HTN (hypertension): Bps high at times and then improved -continue lisinopril. Continue metoprolol tartrate 25 mg p.o. twice daily, and aspirin 81 mg p.o. 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 (7) Superficial laceration of face: Sutures placed by ED staff--=> 2 sutures in superior lip lac and 1 suture in inferior upper lip lac. Will need follow-up with his PCP for suture removal in 1 week -wound care instructions given (8) BPH (benign prostatic hyperplasia): Continue tamsulosin 0.4 mg at bedtime. Not likely a contributor to his syncopal event Total Time Total Time Spent Total Time Spent (In Minutes): >30 min Total Time Includes: Examination of the Patient, Discharge Planning, Medication Reconciliation and Communication With Other Providers (Cardiology) Discharge Plan Discharge Items Patient Disposition: Home - Self-Care Reason For Visit: SYNCOPE Discharge Diagnosis: Syncope Condition: Good Discharge Goals: Diagnostic testing, Improve disease control, Learn about illness and Therapeutic intervention Activity: As commented below Lifting: Gradually increase as tolerated Bathing: No limitations Bathing Comment: No soaking of your upper lip until healed Exercise/Sports: Gradually increase as tolerated Driving/Machine Use Comment: No driving until after cleared by your doctor Non-emergency contact: Primary Care Provider Call non-emergency contact if: you have any medication questions, your symptoms worsen, your pain is not controlled, your pain is worsening, your pain is unusual for you, your pain is concerning for you, you have a fever, your wound has increased redness, your wound has increased drainage and your wound pain has increased Follow-up/Referrals: PCP,NO [Primary Care Provider] - Diet: Heart Healthy Addtl Provider Instructions: You were admitted after passing out which may have been from dehydration and overexertion, as well as low blood pressure. Your pacemaker was interrogated and you did not have any abnormal heart rhythm at the time of the event. You were treated with IV fluid hydration and had improvement. As for your broken nose, please ice the area for 15 min each time, 3 times per day and follow up with your PCP. For your laceration of the lip, you will need to have your sutures removed in 7 days. Please keep the wound clean and dry, gently patting the area dry after cleansing. You can keep it open to the air, but do not soak the wound. Prescriptions: New acetaminophen [Mapap (acetaminophen)] 325 mg Tablet 650 mg PO Q4H PRN (Reason: pain) Qty: 30 RF: 0 Continued atorvastatin 20 mg Tablet PO PM RF: 0 aspirin [Aspir-81] 81 mg Tablet,Delayed Release (Dr/Ec) 81 mg PO QAM RF: 0 tamsulosin 0.4 mg Capsule 0.4 mg PO QPM RF: 0 lisinopril 10 mg Tablet PO QPM RF: 0 cholecalciferol (vitamin D3) [Vitamin D3] 400 unit Capsule 400 unit PO QAM RF: 0 metoprolol tartrate 25 mg Tablet PO BID RF: 0 omega [id number] oil [Fish Oil] 1,000 mg (120 mg-180 mg) Capsule 1 cap PO QAM RF: 0 Stand-Alone Forms: [facility] Discharge Orders: Discharge Order (Routine); Ordered 12/29/18 Ordered By: Sarah Acosta Admission Data Admit Date/Time: 12/28/18 23:14 Attending Provider: Sarah Acosta Admit Provider: Arnold Astorga Primary Care Provider: PCP,NO Other Providers: Arnold Astorga ; Jersey Ziegler Service: Telemetry Other Pending Studies at Discharge: No
[2018-12-29] MEDS ORDERED: LISINOPRIL 10 MG TAB PO SCH (21:00)
[2018-12-29] MEDS ORDERED: TAMSULOSIN HCL 0.4 MG CAP PO SCH (21:00)
[2018-12-29] MEDS ORDERED: ATORVASTATIN 20 MG TAB PO SCH (21:00)
== END 2018-12-29 15:42 | disposition home or self-care (01) ==
LOC: ED 20:17 → 2S 20:17 → SUATTDRO 23:14 → 2S 23:41
DX: Z95.0 Presence of cardiac pacemaker; Z79.82 Long term (current) use of aspirin; Y92.39 Other specified sports and athletic area as the place of occurrence of the external cause; Z95.2 Presence of prosthetic heart valve; I10 Essential (primary) hypertension; W19.XXXA Unspecified fall, initial encounter; R55 Syncope and collapse; S01.511A Laceration without foreign body of lip, initial encounter; N40.0 Benign prostatic hyperplasia without lower urinary tract symptoms; E78.5 Hyperlipidemia, unspecified; N28.9 Disorder of kidney and ureter, unspecified; Z79.899 Other long term (current) drug therapy; Z88.0 Allergy status to penicillin